=== PATIENT | female | born 1955 | race Caucasian/White ===

== ENCOUNTER 2020-09-25 11:35 | Emergency (ER) | payer MEDICARE, OTHER, SELFPAY ==
[2020-09-25 11:45] VITALS: BP 189/86; PULSE 82; RESP 14; TEMP 37.1; O2SAT 98; BMI 23.1
--- NOTE | 2020-09-25 11:53 | DI.RAD.S_ITS ---
PROCEDURE: XR FOOT RT MIN 3V INDICATIONS: foot injury TECHNIQUE: 3 views of the foot were acquired. COMPARISON: None. FINDINGS: Bones: No acute fractures or dislocations. No suspicious bony lesions. Mild generalized osteopenia. Soft tissues: No suspicious soft tissue calcification is seen. IMPRESSION: No acute osseous abnormality. If clinical suspicion and/or symptoms persist, additional imaging with repeat plain films, or advanced imaging (e.g. CT, MRI) may be helpful for further assessment. Dictated by: Carlos Nava M.D. on 09/25/2020 at 12:15 Approved by: Carlos Nava M.D. on 09/25/2020 at 12:17
--- NOTE | 2020-09-25 13:36 | ED_ITS ---
HPI - Extremity Injury (Lower) General Chief Complaint: Extremity Injury, Lower Stated Complaint: twisted right foot yesterday, can't walk on it Time Seen by Provider: 09/25/20 13:24 Source: patient Mode of arrival: Wheelchair Limitations: no limitations History of Present Illness HPI Narrative: Patient is a 65-year-old female who presents with right foot pain. She tripped over a box ED yesterday and hurt her right foot. She is unable to ambulate now but she thinks that she was able to walk on it initially after the injury. She has no ankle pain no numbness or tingling. Related Data Allergies Allergy/AdvReac Type Severity Reaction Status Date / Time codeine Allergy Verified 09/25/20 11:51 Review of Systems Review of Systems Narrative: GENERAL: Denies chills,fever HEENT: Denies throat pain RESPIRATORY: Denies dyspnea, cough, wheezing CARDIOVASCULAR: Denies chest pain, palpitations GASTROINTESTINAL: Denies nausea, vomiting MUSCULOSKELETAL: See HPI SKIN: No rash, no laceration, no pruritus NEUROLOGIC: Denies weakness, dizziness, headache, numbness 8 point review of systems is negative except for those stated above and HPI Patient History Medical History Hypertension Social History Smoking Status: Unknown if ever smoked Smoking Status: Unknown if ever smoked alcohol intake frequency: a few times a week Substance Use Type: does not use Exam Initial Vital Signs Initial Vital Signs: Vital Signs Temperature 98.8 F 09/25/20 11:45 Pulse Rate 82 09/25/20 11:45 Respiratory Rate 14 09/25/20 11:45 Blood Pressure 189/86 H 09/25/20 11:45 Pulse Oximetry 98 09/25/20 11:45 GENERAL: Well-appearing, well-nourished and in no acute distress. CARDIOVASCULAR: peripheral pulses in tact, cap refill <2 sec RESPIRATORY: No respiratory distress, speaks in full sentences without diffic ulty EXTREMITIES: Normal range of motion, no clubbing or edema. Neurovascularly intact Right strapping machine tender on the lateral side no contusion or erythema, midfoot is stable ankle stable Achilles intact strong distal pedal pulse NEUROLOGICAL: Cranial nerves II through XII grossly intact. Normal gait and speech. SKIN: Warm, dry, no petechiae, no rashes or lesions. Course Orders Ordered: ED Orders 09/25/20 11:53 XR foot RT min 3V Stat Vital Signs Vital signs: Vital Signs - 8 hr 09/25/20 11:45 09/25/20 13:44 Temperature 98.8 F Pulse Rate 82 75 Respiratory Rate 14 17 Blood Pressure 189/86 H 196/91 H Pulse Oximetry 98 99 MDM - Extremity Injury (Lower) Imaging Data Extremity x-ray #1: Radiologist's Impression: PROCEDURE: XR FOOT RT MIN 3V INDICATIONS: foot injury TECHNIQUE: 3 views of the foot were acquired. COMPARISON: None. FINDINGS: Bones: No acute fractures or dislocations. No suspicious bony lesions. Mild generalized osteopenia. Soft tissues: No suspicious soft tissue calcification is seen. IMPRESSION: No acute osseous abnormality. If clinical suspicion and/or symptoms persist, additional imaging with repeat plain films, or advanced imaging (e.g. CT, MRI) may be helpful for further assessment. Dictated by: Carlos Nava M.D. on 09/25/2020 at 12:15 Discharge Plan Departure Patient Disposition: Home Clinical Impression: Foot sprain Qualifiers: Encounter type: initial encounter Laterality: right Qualified Code(s): S93.601A - Unspecified sprain of right foot, initial encounter Instructions: DI for Foot Sprain Activity Restrictions/Additional Instructions: *You have been diagnosed with right foot sprain *What to do: At this time weightbear as tolerated, elevate, ice 20-30 minutes at a time, wear supportive shoe as needed. If you are still having pain in 7-10 days he may require repeat x-ray *Continue to take medications as directed Ibuprofen 600 mg every 6-8 hours if needed for [id number] pain *Follow up with your primary care provider in 2-3 days *Return to ER if you should have increasing pain, numbness tingling or weakness or any new, worsening or concerning symptoms
[2020-09-25 13:44] VITALS: BP 196/91; PULSE 75; RESP 17; O2SAT 99
== END 2020-09-25 13:44 | disposition home or self-care (01) ==
PROVIDERS: Emergency Provider Emergency Medicine
DX: S93.601A Unspecified sprain of right foot, initial encounter (principal); W18.40XA Slipping, tripping and stumbling without falling, unspecified, initial encounter
CPT/HCPCS: 73630; 99283